=== PATIENT | male | born 1995 | race African-American/Black ===

== ENCOUNTER 2016-12-31 06:27 | Day surgery (SDC) | payer MEDICAID ==
[2016-12-31] MEDS ORDERED: PROPOFOL INJ 200 MG/20 ML VIAL IV ONE (06:50)
[2016-12-31] MEDS ORDERED: MIDAZOLAM 2 MG/2 ML INJ ONE (06:50)
[2016-12-31] MEDS ORDERED: ONDANSETRON HCL INJ/PF 4 MG/2 ML SDV ONE (07:10)
[2016-12-31] MEDS ORDERED: LIDOCAINE 2% INJ-PF (20 MG/ML) 10 ML AMPUL ONE (07:10)
[2016-12-31] MEDS ORDERED: BUPIVACAINE HCL 0.75% INJ/PF (7.5 MG/1 ML) 10 ML SDV ONE (07:18)
[2016-12-31] MEDS ORDERED: LIDOCAINE 2%/EPINEPHRINE INJ 20 ML VIAL ONE (07:18)
[2016-12-31] MEDS ORDERED: TOBRAMYCIN SULFATE/DEXAMETH OPH OINTMENT 3.5 GM ONE (07:18)
[2016-12-31] MEDS ORDERED: POVIDONE-IODINE 5% OPH PREP SOLN 30 ML ONE (07:20)
--- NOTE | 2016-12-31 08:33 | SURGICARE DISCHARGE SUMMARY E ---
[facility] Discharge Summary NAME: SHAVNONE HILL AGE: 21Y ADMITTED: 12/31/2016 DISCHARGED: 12/31/2016 HOSPITAL COURSE: The patient is a 21-year-old mentally challenged patient with a large chalazion on left lower lid who underwent excision under general anesthesia on 12/31/2016 without complication. He tolerated the procedure well and was sent to recovery room. He will be discharged and is instructed to use the TobraDex ointment twice a day and to follow up in my office in 1 week. DICTATING PHYSICIAN: MOLLY NOLASCO M.D. [id number] PHY#: [id number] ID: [id number] JOB#: [id number] ACCT: [id number] cc:MOLLY NOLASCO M.D. >
--- NOTE | 2016-12-31 08:33 | SURG[facility]ARE OPERATIVE REPORT E ---
[facility] Operative Report NAME: SHAVONNE HILL AGE: 21Y DATE OF SURGERY: 12/31/2016 ROOM: PREOPERATIVE DIAGNOSIS: Chalazion left lower lid. POSTOPERATIVE DIAGNOSIS: Chalazion left lower lid. OPERATION: Incision and drainage of chalazion left lower lid. SURGEON: MOLLY NOLASCO M.D. ANESTHESIA: General. DESCRIPTION OF PROCEDURE: The patient was brought from the operating room and general anesthesia was administered. The left eye was sterilely prepped and draped. Local anesthesia was administered in the site of this large lower lid chalazion. Total of 1.5 mL of 2% Xylocaine with epinephrine mixed with 0.75% Marcaine were administered to lower lid site. Chalazion clamp was placed on the left lower lid. A 15-blade was used to create an incision on the palpebral conjunctiva. A curette was used to excise chalazion contents. Cautery was applied. Chalazion clamp was removed. TobraDex ointment was placed. The eye was patched and the patient was extubated and sent to recovery room in good condition. DICTATING PHYSICIAN: MOLLY NOLASCO M.D. [id number] PHY#: [id number] ID: [id number] JOB#: [id number] ACCT: [id number] cc:MOLLY NOLASCO M.D. >
== END 2016-12-31 09:03 | disposition home or self-care (01) ==
LOC: SC 06:27
PROVIDERS: ATTEND Ophthalmology
PROC: 089RXZZ Drainage of Left Lower Eyelid, External Approach (ICD-10-PCS; principal; 2016-12-31 07:30)
DX: H00.15 Chalazion left lower eyelid (principal); J45.909 Unspecified asthma, uncomplicated; F79 Unspecified intellectual disabilities; F90.9 Attention-deficit hyperactivity disorder, unspecified type; F42.9 Obsessive-compulsive disorder, unspecified; Z88.0 Allergy status to penicillin; Z88.1 Allergy status to other antibiotic agents; Z79.51 Long term (current) use of inhaled steroids; Z79.899 Other long term (current) drug therapy
CPT/HCPCS: 67700; J2250; J3490 ×5; J2405; J2704; 300

== ENCOUNTER 2017-04-12 08:19 | Emergency (ER) | payer MEDICAID ==
--- NOTE | 2017-04-12 09:10 | ER Document Report ---
ED GI/ - General Mode of Arrival: Ambulatory Information source: Patient, Parent TRAVEL OUTSIDE OF THE [place] IN LAST 30 DAYS: No <ROSALBA KAMARA - Last Filed: 04/12/17 12:06> <JEROD KAPLAN - Last Filed: 04/12/17 13:35> - General Chief Complaint: Urinary Problem Stated Complaint: GROIN PAIN Time Seen by Provider: 04/12/17 08:47 Notes: Patient is a 21-year-old male who presents to the emergency department today with complaints of penile and abdominal pain for 1 week. Patient has MR so danial at bedside is reporting most history. Mom states the patient began complaining 1 week ago about this pain. Mom states that the patient does not usually mention pain until it is "unbearable" so she states she is unsure of how long the patient actually has been having the symptoms. Mom states the patient has stated that it hurts when he urinates, there is urinary frequency, and hesitancy. Mom states the patient is not sexually active. Mom and patient deny any penile discharge, redness or swelling around the penis, fevers, vomiting, or history of UTIs. (ROSALBA KAMARA) - Related Data Allergies/Adverse Reactions: amoxicillin [Amoxicillin] Allergy (Verified 12/24/15 09:28) azithromycin [From Zithromax] Allergy (Verified 12/24/15 09:28) Past Medical History - General Information source: Parent, [facility] Records - Social History Smoking Status: Never Smoker Cigarette use (# per day): No Frequency of alcohol use: None Drug Abuse: None Lives with: Family Family History: Reviewed & Not Pertinent Patient has suicidal ideation: No Patient has homicidal ideation: No Pulmonary Medical History: Reports: Hx Asthma GI Medical History: Reports: Hx Gastroesophageal Reflux Disease Psychiatric Medical History: Reports: Hx Attention Deficit Hyperactivity Disorder Past Surgical History: Reports: Hx Myringotomy - Immunizations Immunizations up to date: Yes Hx Diphtheria, Pertussis, Tetanus Vaccination: Yes <ROSALBA KAMARA - Last Filed: 04/12/17 12:06> Review of Systems - Review of Systems Constitutional: No symptoms reported EENT: No symptoms reported Cardiovascular: No symptoms reported Respiratory: No symptoms reported Gastrointestinal: See HPI, Abdominal pain. denies: Vomiting Genitourinary: See HPI, Pain, Other - Hesitancy, frequency Male Genitourinary: denies: Testicular pain, Penile discharge Musculoskeletal: No symptoms reported Skin: No symptoms reported Hematologic/Lymphatic: No symptoms reported Neurological/Psychological: No symptoms reported -: Yes All other systems reviewed and negative <ROSALBA KAMARA - Last Filed: 04/12/17 12:06> <JEROD KAPLAN - Last Filed: 04/12/17 13:35> - Review of Systems Notes: given by patient and mom at bedside (ROSALBA KAMARA) Physical Exam <ROSALBA KAMARA - Last Filed: 04/12/17 12:06> <JEROD KAPLAN - Last Filed: 04/12/17 13:35> - Vital signs Vitals: Temp Pulse BP Pulse Ox 97.5 F 58 L 111/71 95 04/12/17 08:28 04/12/17 08:28 04/12/17 08:28 04/12/17 08:28 - Notes Notes: PHYSICAL EXAM GENERAL: Alert, interacts at baseline according to mom at bedside. No acute distress. HEAD: Normocephalic, atraumatic. EYES: Pupils equal, round, and reactive to light. Extraocular movements intact. ENT: Oral mucosa moist, tongue midline. NECK: Full range of motion. Supple. Trachea midline. LUNGS: Clear to auscultation bilaterally, no wheezes, rales, or rhonchi. No respiratory distress. HEART: Regular rate and rhythm. No murmurs, gallops, or rubs. ABDOMEN: Soft, no apparent tenderness with palpation. Mildly distended abdomen. Bowel sounds present in all 4 quadrants. MALE GENITOURINARY: Testicles are normal in appearance. No testicular swelling. No obvious sign of pain however when asked patient complains of mild pain to entire genital area including suprapubic abdomen, penis, testicles, and scrotum. EXTREMITIES: Moves all 4 extremities spontaneously. No edema. No cyanosis. NEUROLOGICAL: Alert and oriented x3. Normal speech. PSYCH: Normal affect, normal mood. SKIN: Warm, dry, normal turgor. No rashes or lesions noted. (ROSALBA KAMARA) Course - Laboratory Result Diagrams: 04/12/17 11:11 04/12/17 11:11 <ROSALBA KAMARA - Last Filed: 04/12/17 12:06> - Laboratory Result Diagrams: 04/12/17 11:11 04/12/17 12:11 <JEROD KAPLAN - Last Filed: 04/12/17 13:35> - Re-evaluation Re-evalutation: 04/12/17 13:33 Initially Martines catheter was placed to determine if there is urinary retention, residual is only 50 mL's. This is not the explanation of the pain. Urinalysis unremarkable, patient is not sexually active so we did not complete the order for gonorrhea or chlamydia. Patient was then further investigated with CT scan of the abdomen and pelvis which does not show any acute process. CBC and chemistries are normal. Testicular torsion as the patient has minimal tenderness to palpation diffusely across both testicles, his penis and his suprapubic region. Cremasteric reflex is intact and there is no difference in size between the 2 testicles. Patient is going to be discharged to home, will follow up with primary care physician if pain persists in a week and return for worsening pain before then. (JEROD KAPLAN) - Vital Signs Vital signs: Temp Pulse Resp BP Pulse Ox 97.5 F 58 L 111/71 95 04/12/17 08:28 04/12/17 08:28 04/12/17 08:28 04/12/17 08:28 - Laboratory Laboratory results interpreted by me: 04/12/17 12:11 ALT 18 L Discharge <ROSALBA KAMARA - Last Filed: 04/12/17 12:06> <JEROD KAPLAN - Last Filed: 04/12/17 13:35> - Discharge Clinical Impression: Pain of male genitalia Condition: Stable Disposition: HOME, SELF-CARE Additional Instructions: Today your blood work was normal, there is no sign of urinary tract infection, there is no sign of infection in your abdomen. Please follow-up with your primary care physician within the next week. Please return to the emergency department should your pain worsen, you develop any fevers, you are unable to urinate or you have any new or concerning symptoms. Please use ibuprofen (Motrin or Advil) 600-800 mg every 8 hours as needed for pain or fever. You may also use acetaminophen (Tylenol) 1000 mg every 4-6 hours as needed for pain or fever. Please be aware that many medications contain acetaminophen, do not exceed a total of 1000 mg of acetaminophen every 6 hours. Referrals: RADHA DALY MD [Primary Care Provider] - Follow up in 1 week Scribe Attestation: 04/12/17 13:35 I personally performed the services described in the documentation, reviewed and edited the documentation which was dictated to the scribe in my presence, and it accurately records my words and actions. (JEROD KAPLAN) Scribe Documentation - Scribe Written by Barte:: Maurilio Lindo, 04/12/2017 [id number] acting as scribe for :: Hemal <ROSALBA KAMARA - Last Filed: 04/12/17 12:06>
[2017-04-12 09:17] LABS: APPEARANCE,URINE CLEAR; BILIRUBIN,URINE NEGATIVE (NEGATIVE); GLUCOSE, URINE NEGATIVE (NEGATIVE); KETONES,URINE NEGATIVE (NEGATIVE); LEUKOCYTE ESTERASE,URINE NEGATIVE (NEGATIVE); NITRITE,URINE NEGATIVE (NEGATIVE); PROTEIN,URINE NEGATIVE (NEGATIVE); URINE SPECIFIC GRAVITY 1.013; UROBILINOGEN,URINE NEGATIVE mg/dL (<2.0)
[2017-04-12 11:37] LABS: ABSOLUTE LYMPHOCYTES (AUTO) 1.8 10^3/uL (0.5-4.7); ABSOLUTE MONOCYTES (AUTO) 0.2 10^3/uL (0.1-1.4); ABSOLUTE NEUT (AUTO) 3.6 10^3/uL (1.7-8.2); BASOPHILS % (AUTO) 0.6 % (0-2); EOSINOPHILS % (AUTO) 0.4 % (0-6); HEMATOCRIT 44.2 % (37.9-51.0); HEMOGLOBIN 14.5 g/dL (13.5-17.0); HGB HCT DIFFERENCE -0.7; LYMPHOCYTES % (AUTO) 32.3 % (13-45); MEAN CORPUSCULAR HEMOGLOBIN 28.2 pg (27.0-33.4); MEAN CORPUSCULAR HGB CONC 32.8 g/dL (32.0-36.0); MEAN CORPUSCULAR VOLUME 86 fl (80-97); MONOCYTES % (AUTO) 3.9 % (3-13); RED BLOOD COUNT 5.15 10^6/uL (4.35-5.55); RED CELL DISTRIBUTION WIDTH 12.5 % (11.5-14.0); SEGMENTED NEUTROPHILS % (AUTO) 62.8 % (42-78); WHITE BLOOD COUNT 5.7 10^3/uL (4.0-10.5)
--- NOTE | 2017-04-12 11:56 | RADIOLOGY REPORT (SQ) ---
EXAM DESCRIPTION: CT ABD/PELVIS WITH IV ONLY COMPLETED DATE/TIME: 04/12/2017 11:40 am REASON FOR STUDY: low abd pain and swelling COMPARISON: None. TECHNIQUE: CT scan of the abdomen and pelvis performed using helical scanning technique with dynamic intravenous contrast injection. No oral contrast. Images reviewed with lung, soft tissue, and bone windows. Reconstructed coronal and sagittal MPR images reviewed. Delayed images for evaluation of the urinary system also acquired. All images stored on PACS. All CT scanners at this facility use dose modulation, iterative reconstruction, and/or weight based d osing when appropriate to reduce radiation dose to as low as reasonably achievable (ALARA). [facility]: Dose Right [facility]: CareDose [facility]: Dose Right [facility]: Teradose 4D [facility]: [employer] CONTRAST TYPE AND DOSE: 66mL Isovue 370- low osmolar. RENAL FUNCTION: None required. The patient is less than 50 years old. RADIATION DOSE: 9.83mGy. LIMITATIONS: None. FINDINGS: LOWER CHEST: No significant findings. No nodules or infiltrates. LIVER: Normal size. No masses or dilated ducts. SPLEEN: Normal size. No focal lesions. PANCREAS: No masses. No significant calcifications. No adjacent inflammation or peripancreatic fluid collections. Pancreatic duct not dilated. GALLBLADDER: Surgically absent. ADRENAL GLANDS: No significant masses or asymmetry. RIGHT KIDNEY AND URETER: No solid masses. No significant calcifications. No hydronephrosis or hyd roureter. LEFT KIDNEY AND URETER: No solid masses. No significant calcifications. No hydronephrosis or hydr oureter. AORTA AND VESSELS: No aneurysm. No dissection. Renal arteries, SMA, celiac without stenosis. RETROPERITONEUM: No retroperitoneal adenopathy, hemorrhage or masses. BOWEL AND PERITONEAL CAVITY: No masses or inflammatory changes. No free fluid or peritoneal masses. APPENDIX: Normal. PELVIS: No mass or free fluid. Normal bladder. ABDOMINAL WALL: No masses. No hernias. BONES: No significant or acute findings. OTHER: No other significant finding. IMPRESSION: NO SIGNIFICANT OR ACUTE FINDING IN THE ABDOMEN OR PELVIS ON CT SCAN WITH IV CONTRAST. TECHNICAL DOCUMENTATION: JOB ID: [id number] Quality ID # [id number]: Final reports with documentation of one or more dose reduction techniques (e.g., Au tomated exposure control, adjustment of the mA and/or kV according to patient size, use of iterative reconstruction technique) 2010 [employer]- All Rights Reserved
[2017-04-12 13:08] LABS: ALANINE AMINOTRANSFERASE 18 U/L (21-72); ALBUMIN 4.2 g/dL (3.5-5.0); ALKALINE PHOSPHATASE 46 U/L (38-126); ANION GAP 12 (5-19); ASPARTATE AMINO TRANSFERASE 17 U/L (17-59); BILIRUBIN,DIRECT 0.3 mg/dL (0.0-0.4); BILIRUBIN,TOTAL 0.6 mg/dL (0.2-1.3); BLOOD UREA NITROGEN 9 mg/dL (7-20); CALCIUM 9.6 mg/dL (8.4-10.2); CARBON DIOXIDE 26 mmol/L (22-30); CHLORIDE 103 mmol/L (98-107); CREATININE RESULT 0.82 mg/dL (0.52-1.25); GLUCOSE 103 mg/dL (75-110); POTASSIUM 4.1 mmol/L (3.6-5.0); SODIUM 140.8 mmol/L (137-145)
[2017-04-12 13:47] VITALS: BP 100/60
[2017-04-12 15:19] LABS: CHLAM PCR NOT DETECTED (NOT DETECT)
== END 2017-04-12 13:47 | disposition home or self-care (01) ==
LOC: ER 08:19
DX: R10.9 Unspecified abdominal pain (principal); N48.89 Other specified disorders of penis; J45.909 Unspecified asthma, uncomplicated; K21.9 Gastro-esophageal reflux disease without esophagitis; F79 Unspecified intellectual disabilities; Z88.0 Allergy status to penicillin; Z88.3 Allergy status to other anti-infective agents
CPT/HCPCS: 36415; 51702; 74177; 80053; 81001; 85025; 87491; 87591; 99284

== ENCOUNTER 2019-04-06 15:16 | Emergency (ER) | payer OTHER, MEDICAID ==
[2019-04-06 15:53] VITALS: BP 100/71
[2019-04-06] MEDS ORDERED: IBUPROFEN 600 MG TABLET PO ONE (16:37)
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
[2019-04-06] MEDS ORDERED: CYCLOBENZAPRINE HCL 10 MG TABLET PO ONE (17:37)
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
== END 2019-04-06 17:47 | disposition home or self-care (01) ==
LOC: ER 15:16
DX: S16.1XXA Strain of muscle, fascia and tendon at neck level, initial encounter (principal); V87.7XXA Person injured in collision between other specified motor vehicles (traffic), initial encounter
CPT/HCPCS: 72125; 99283